=== PATIENT | male | born 1990 | race Caucasian/White ===

== ENCOUNTER 2017-02-23 20:20 | Inpatient (IN) | payer OTHER ==
[~2017-02-23] VITALS: Ht 185.4 cm; Wt 58.2 kg
[2017-02-23 23:07] LABS: HEMOGLOBIN 12.5 gm/dl (14.0-17.5); RED BLOOD COUNT 3.86 M/UL (4.20-5.50); WHITE BLOOD COUNT 6.3 K/UL (4.5-11.0)
[2017-02-23 23:24] LABS: BUN/CREATININE RATIO 17 (0-10)
[2017-02-24] MEDS ORDERED: KLONOPIN TAB 00.5 MG PO (02:21)
[2017-02-24] MEDS ORDERED: BUSPAR 5MG TABLE5 MG PO (02:21)
[2017-02-24] MEDS ORDERED: ZOLOFT100 MG PO (02:21)
[2017-02-25 04:51] LABS: HEMOGLOBIN 11.1 gm/dl (14.0-17.5)
[2017-02-25 04:52] LABS: RED BLOOD COUNT 3.44 M/UL (4.20-5.50)
[2017-02-25 05:14] LABS: BUN/CREATININE RATIO 18 (0-10)
[2017-02-25] MEDS ORDERED: PERCOCET 7.5-31 EACH PO (10:00)
[2017-02-25] MEDS ORDERED: STOOL SOFTENER250 MG PO (15:53)
[2017-02-25] MEDS ORDERED: ZOFRAN4 MG PO (15:55)
[2017-02-25] MEDS ORDERED: ASPIR 8181 MG PO (15:56)
== END 2017-02-25 18:43 | disposition home or self-care (01) | DRG 494 ==
LOC: ER1 20:20 → ZEROF 22:15 → M/S 02-24 00:45
PROVIDERS: Physician Assistant; ADMIT Orthopaedic Surgery
PROC: 0QHH36Z Insertion of Intramedullary Internal Fixation Device into Left Tibia, Percutaneous Approach (ICD-10-PCS; principal; 2017-02-24 08:52)
PROC: 0QBH0ZZ Excision of Left Tibia, Open Approach (ICD-10-PCS; principal; 2017-02-24 08:52)
DX: S82.292B Other fracture of shaft of left tibia, initial encounter for open fracture type I or II (principal); W29.3XXA Contact with powered garden and outdoor hand tools and machinery, initial encounter; Y93.89 Activity, other specified; F32.9 Major depressive disorder, single episode, unspecified; R35.0 Frequency of micturition; Y92.007 Garden or yard of unspecified non-institutional (private) residence as the place of occurrence of the external cause; Z79.899 Other long term (current) drug therapy; F17.210 Nicotine dependence, cigarettes, uncomplicated; Z83.49 Family history of other endocrine, nutritional and metabolic diseases; Z82.49 Family history of ischemic heart disease and other diseases of the circulatory system
CPT/HCPCS: 36415; 73590; 76000; 80048; 80053; 80170; 85025; 85027; 87040; 90715; C1713; C1729; J0690; J1580; J1650; J1885; J2250; J2270; J2310; J2370; J2405; J2550; J3010; J7050; J7120; Q0162

== ENCOUNTER 2021-12-19 16:29 | Emergency (ER) | payer OTHER ==
[~2021-12-19 16:29] MED LIST: ASPIR 8181 MG PO; BUSPAR 5MG TABLE5 MG PO; KLONOPIN TAB 00.5 MG PO; PERCOCET 7.5-31 EACH PO; STOOL SOFTENER250 MG PO; ZOFRAN4 MG PO; ZOLOFT100 MG PO
[2021-12-19] MEDS ORDERED: NAPROXEN500 MG PO (17:56)
== END 2021-12-19 18:06 | disposition home or self-care (01) ==
LOC: ER1 16:29
DX: S02.2XXA Fracture of nasal bones, initial encounter for closed fracture (principal); Y04.0XXA Assault by unarmed brawl or fight, initial encounter
CPT/HCPCS: 70450; 70486; 99283

== ENCOUNTER 2022-03-01 15:11 | Emergency (ER) | payer OTHER ==
[~2022-03-01 15:11] MED LIST changes: +NAPROXEN500 MG PO
[2022-03-01] MEDS ORDERED: ZOFRAN ODT 4 MG4 MG SL (19:58)
[2022-03-01] MEDS ORDERED: HYDROCODON-ACE1 EAC4 PO (19:58)
== END 2022-03-01 20:40 | disposition home or self-care (01) ==
LOC: ER1 15:11
DX: S02.2XXA Fracture of nasal bones, initial encounter for closed fracture (principal); F17.210 Nicotine dependence, cigarettes, uncomplicated; V29.9XXA Motorcycle rider (driver) (passenger) injured in unspecified traffic accident, initial encounter
CPT/HCPCS: 21315; 70450; 70486; 72125; 73564; 73610; 73630; 93005; 96374; 96375; 96376; 99284; J2270; J2405

== ENCOUNTER 2022-03-03 04:29 | Emergency (ER) | payer OTHER ==
[~2022-03-03 04:29] MED LIST changes: +HYDROCODON-ACE1 EAC4 PO; +ZOFRAN ODT 4 MG4 MG SL
[2022-03-03 05:20] LABS: HEMOGLOBIN 14.5 gm/dl (14.0-17.5); RED BLOOD COUNT 4.49 M/UL (4.20-5.50); WHITE BLOOD COUNT 13.8 K/UL (4.5-11.0)
[2022-03-03 05:35] LABS: BUN/CREATININE RATIO 11 (0-10)
== END 2022-03-03 08:23 | disposition home or self-care (01) ==
LOC: ER1 04:29
PROVIDERS: Student in an Organized Health Care Education/Training Program
DX: S02.2XXA Fracture of nasal bones, initial encounter for closed fracture (principal); S00.83XA Contusion of other part of head, initial encounter; V89.2XXA Person injured in unspecified motor-vehicle accident, traffic, initial encounter; Y92.410 Unspecified street and highway as the place of occurrence of the external cause
CPT/HCPCS: 80053; 82550; 82553; 84484; 85025; 93005; 99284; Q9967

== ENCOUNTER → 2022-03-17 | Day surgery (SDC) | payer OTHER | END | disposition home or self-care (01) | LOC: OR 06:12 | DX: S02.2XXA Fracture of nasal bones, initial encounter for closed fracture (principal); F17.210 Nicotine dependence, cigarettes, uncomplicated; V29.9XXA Motorcycle rider (driver) (passenger) injured in unspecified traffic accident, initial encounter | CPT/HCPCS: C1726; J0690; J1100; J2001; J2250; J2405; J2704; J3010 ==